=== PATIENT | female | born 1970 | race Caucasian/White ===

== ENCOUNTER 2017-01-10 14:11 | Observation (INO) ==
--- NOTE | 2017-01-10 14:24 | Emergency Department Note ---
Disposition Clinical Impression: Chest pain Disposition: Admitted As Inpatient Condition: Good Forms: ED Satisfaction Letter Time of Disposition: 17:59 Chest Pain HPI - General Chief Complaint: ED Chest Pain Stated Complaint: CP, High BP Time Seen by Provider: 01/10/17 14:24 Source: patient Limitations: no limitations Vital Signs Reviewed: Yes Nursing Notes Reviewed: Yes - History of Present Illness HPI Narrative: 36-year-old white female presents emergency department via private vehicle complaining of epigastric/chest pain. She describes a numbness and tingling in her left arm. She says that she was awakened this morning with this chest burning and pressure. She says that she went to work and was not going to come to the emergency department until it was discovered that she had an elevated blood pressure and she was encouraged by coworkers to come and be checked. She says that she has never been told that she has had a problem with her heart before, but says that she does not go to the doctor, because she does not want to know. She is uncomfortable and anxious presently. She says that she has a positive family history including a AAA in her brother at age 38. She also says that other relatives have had PE in the past. Severity scale (1-10): 6 - Related Data Home Medications Medication Instructions Recorded Confirmed No Known Home Drugs 01/10/17 01/10/17 Allergies Allergy/AdvReac Type Severity Reaction Status Date / Time Sulfa (Sulfonamide Allergy Rash Verified 01/10/17 14:21 Antibiotics) All systems ED: reviewed and negative except as stated. Constitutional: Denies: fever, chills, weakness, weight change Eyes: Denies: eye pain, eye discharge, vision change ENT ED: Denies: ear pain, throat pain, dental pain, hearing loss, epistaxis, congestion, dysphagia Cardiovascular: Reports: as per HPI, chest pain. Denies: palpitations, dyspnea on exertion, edema, syncope Respiratory: Denies: cough, dyspnea, wheezes, hemoptysis, stridor Gastrointestinal: Reports: abdominal pain, nausea Genitourinary: Denies: dysuria, frequency, hematuria, discharge Musculoskeletal: Denies: back pain, neck pain, arthralgia, myalgia Integumentary: Denies: rash, abrasion, lesions Neurological: Denies: headache, weakness, numbness, paresthesias, confusion, abnormal gait, vertigo Psychiatric: Denies: anxiety, depression, suicidal thoughts, homicidal thoughts , auditory hallucinations, visual hallucinations Endocrine: Denies: fatigue Hematological/Lymphatic: Denies: easy bleeding, easy bruising Allergic/Immunologic: Denies: facial swelling, urticaria Chest Pain PMH - Past Medical History Medical history: Reports: no medical history Psychiatric history: Reports: no psych history - Social History Smoking Status: Never smoker Alcohol use: Reports: occasionally Drug use: Reports: none Physical Exam - General Limitations: no limitations General appearance: alert, in no apparent distress - Head Head exam: atraumatic, normocephalic, normal inspection - Eye Eye exam: Present: normal appearance, PERRL, EOMI - ENT ENT exam: normal exam, normal oropharynx, mucous membranes moist - Neck Neck exam: Present: normal inspection, full ROM, trachea midline - Chest Chest inspection: Present: normal inspection, symmetric chest wall rise - Respiratory Respiratory exam: Present: normal lung sounds bilaterally - Cardiovascular Cardiovascular exam: Present: regular rate, normal rhythm, normal heart sounds - Abdominal Exam Abdominal exam: Present: soft, tenderness, normal bowel sounds, other ( Palpation of her epigastrium reproduces her symptoms.). Absent: distention, guarding, rebound, rigidity, organomegaly, mass Abdominal tenderness: Present: epigastrium, moderate - Extremities Exam Extremities exam: Present: normal inspection, full ROM. Absent: tenderness, pedal edema - Back Exam Back exam: Present: normal inspection, full ROM. Absent: tenderness, CVA tenderness (L) - Neurological Exam Neurological exam: Present: alert, oriented X3, CN II-XII intact. Absent: motor sensory deficit - Psychiatric Psychiatric exam: Present: normal affect, normal mood - Skin Skin exam: Present: warm, dry, intact, normal color Course Course Narrative: The patient remained stable throughout her emergency department stay. She was pain free at the time of her disposition. Vital Signs Temperature 98.0 F 01/10/17 14:16 Pulse Rate 114 01/10/17 14:16 Respiratory Rate 18 01/10/17 14:16 Blood Pressure 130/97 01/10/17 14:16 O2 Sat by Pulse Oximetry 97 01/10/17 14:16 Temperature 98.0 F 01/10/17 14:16 Pulse Rate 114 01/10/17 14:16 Respiratory Rate 18 01/10/17 14:16 Blood Pressure 130/97 01/10/17 14:16 O2 Sat by Pulse Oximetry 98 01/10/17 14:23 Oxygen Delivery Oxygen Delivery Room Air Chest Pain - Lab Data Lab results reviewed: Yes I reviewed the patient's lab results. Result diagrams: 01/10/17 14:45 01/10/17 14:45 Lab Results 01/10/17 01/10/17 01/10/17 Range/Units 14:45 14:45 14:45 WBC 8.1 (4.3-11.1) K/mcL RBC 4.53 (3.82-4.97) M/mcL Hgb 14.1 (11.5-15.4) g/dL Hct 39.9 (35.3-44.9) % MCV 88.1 (83.0-100.0) fL MCH 31.1 (28.0-33.3) pg MCHC 35.3 (31.6-35.5) g/dL RDW 12.4 (11.5-14.5) % Plt Count 311 (140-400) K/mcL MPV 10.1 (9.4-12.4) fL Immature Gran % 0.2 (0-4) % Seg Neutrophils % 73.1 % Lymphocytes % 19.1 % Monocytes % 6.4 % Eosinophils % 0.7 % Basophils % 0.5 % Neutrophils # 5.9 (1.6-8.9) K/mcL Lymphocytes # 1.6 (0.6-4.6) K/mcL Monocytes # 0.5 (0.0-1.3) K/mcL Eosinophils # 0.1 (0.0-0.6) K/mcL Basophils # 0.0 (0.0-0.2) K/mcL D-Dimer 293 (0-500) ng/mLFEU Sodium 137 (136-145) mEq/L Potassium 3.8 (3.5-4.5) mEq/L Chloride 109 (98-109) mEq/L Carbon Dioxide 21 (19-29) mEq/L BUN 10 (7-20) mg/dL Creatinine 0.77 (0.57-1.11) mg/dL Est GFR ( Amer) > 60 (> 60) Est GFR (Non-Af Amer) > 60 (> 60) BUN/Creatinine Ratio 13 (6-26) Glucose 102 H (70-99) mg/dL Calculated Osmolality 283 (280-300) Calcium 9.3 (8.6-10.8) mg/dL Total Bilirubin 0.6 (0.2-1.2) mg/dL AST 52 H (5-34) Units/L ALT 69 H (0-55) Units/L Alkaline Phosphatase 69 (38-126) Units/L Troponin I (0-0.03) ng/mL Serum Total Protein 7.0 (6.0-8.3) g/dL Albumin 3.5 (3.5-5.0) g/dL Globulin 3.5 (2.4-3.5) g/dL Albumin/Globulin Ratio 1.0 L (1.1-2.2) Lipase 22 (8-78) Units/L Salicylates < 5.0 L (15-30) mg/dL 01/10/17 Range/Units 14:45 WBC (4.3-11.1) K/mcL RBC (3.82-4.97) M/mcL Hgb (11.5-15.4) g/dL Hct (35.3-44.9) % MCV (83.0-100.0) fL MCH (28.0-33.3) pg MCHC (31.6-35.5) g/dL RDW (11.5-14.5) % Plt Count (140-400) K/mcL MPV (9.4-12.4) fL Immature Gran % (0-4) % Seg Neutrophils % % Lymphocytes % % Monocytes % % Eosinophils % % Basophils % % Neutrophils # (1.6-8.9) K/mcL Lymphocytes # (0.6-4.6) K/mcL Monocytes # (0.0-1.3) K/mcL Eosinophils # (0.0-0.6) K/mcL Basophils # (0.0-0.2) K/mcL D-Dimer (0-500) ng/mLFEU Sodium (136-145) mEq/L Potassium (3.5-4.5) mEq/L Chloride (98-109) mEq/L Carbon Dioxide (19-29) mEq/L BUN (7-20) mg/dL Creatinine (0.57-1.11) mg/dL Est GFR ( Amer) (> 60) Est GFR (Non-Af Amer) (> 60) BUN/Creatinine Ratio (6-26) Glucose (70-99) mg/dL Calculated Osmolality (280-300) Calcium (8.6-10.8) mg/dL Total Bilirubin (0.2-1.2) mg/dL AST (5-34) Units/L ALT (0-55) Units/L Alkaline Phosphatase (38-126) Units/L Troponin I 0.00 (0-0.03) ng/mL Serum Total Protein (6.0-8.3) g/dL Albumin (3.5-5.0) g/dL Globulin (2.4-3.5) g/dL Albumin/Globulin Ratio (1.1-2.2) Lipase (8-78) Units/L Salicylates (15-30) mg/dL - Radiology Data Radiology results reviewed: Yes I reviewed the patient's radiology results. - EKG Data EKG attestation: Yes I reviewed and interpreted this EKG. EKG results narrative: Twelve-lead EKG showed normal sinus rhythm, rate 91, normal axis, low voltage, no acute ST elevation or depression appreciated.
[2017-01-10] MEDS ORDERED: GI Cocktail 40 ML EACH PO ONE (14:34)
[2017-01-10] MEDS ORDERED: Aspirin 81 MG TAB.CHEW PO STA (14:34)
[2017-01-10 14:55] LABS: Basophils % 0.5 %; Eosinophils # 0.1 K/mcL (0.0-0.6); Eosinophils % 0.7 %; Hematocrit 39.9 % (35.3-44.9); Hemoglobin 14.1 g/dL (11.5-15.4); Immature Granulocytes % 0.2 % (0-4); Lymphocytes # 1.6 K/mcL (0.6-4.6); Lymphocytes % 19.1 %; Mean Corpuscular HGB Conc 35.3 g/dL (31.6-35.5); Mean Corpuscular Hemoglobin 31.1 pg (28.0-33.3); Mean Corpuscular Volume 88.1 fL (83.0-100.0); Mean Platelet Volume 10.1 fL (9.4-12.4); Monocytes # 0.5 K/mcL (0.0-1.3); Monocytes % 6.4 %; Neutrophils # 5.9 K/mcL (1.6-8.9); Platelet Count 311 K/mcL (140-400); Red Blood Count 4.53 M/mcL (3.82-4.97); Red Cell Distribution Width 12.4 % (11.5-14.5); Segmented Neutrophils % 73.1 %
[2017-01-10] MEDS ORDERED: *HR* Morphine 2 MG/ML SYRINGE IVP ONE ×2 (15:05→15:55)
[2017-01-10] MEDS ORDERED: Ondansetron 4 MG/2 ML VIAL IVP ONE ×2 (15:05→15:55)
[2017-01-10] MEDS ORDERED: *HR* LORazepam 2 MG/ML VIAL IVP ONE (15:05)
[2017-01-10 15:12] LABS: Alanine Aminotransferase 69 Units/L (0-55); Albumin 3.5 g/dL (3.5-5.0); Alkaline Phosphatase 69 Units/L (38-126); Aspartate Amino Transferase 52 Units/L (5-34); BUN/Creatinine Ratio 13 (6-26); Bilirubin,Total 0.6 mg/dL (0.2-1.2); Blood Urea Nitrogen 10 mg/dL (7-20); Calcium 9.3 mg/dL (8.6-10.8); Carbon Dioxide 21 mEq/L (19-29); Chloride 109 mEq/L (98-109); Globulin 3.5 g/dL (2.4-3.5); Glucose 102 mg/dL (70-99); Lipase 22 Units/L (8-78); Osmolality,Calculated 283 (280-300); Potassium 3.8 mEq/L (3.5-4.5); Salicylate < 5.0 mg/dL (15-30); Sodium 137 mEq/L (136-145); eGFR For African Americans > 60 (> 60); eGFR For Non-African Americans > 60 (> 60)
[2017-01-10] MEDS ORDERED: Ibuprofen 400 MG TABLET PO PRN (18:38)
[2017-01-10] MEDS ORDERED: Ondansetron ODT 4 MG TAB.RAPDIS SL PRN (18:38)
[2017-01-10] MEDS ORDERED: Naloxone 0.4 MG/ML INJ IVP PRN (18:38)
[2017-01-10] MEDS ORDERED: Acetaminophen 325 MG TABLET PO PRN (18:38)
[2017-01-10] MEDS ORDERED: *HR* HYDROmorphone (PF) 1 MG/ML SYRINGE IVP PRN (18:38)
[2017-01-10] MEDS ORDERED: Ketorolac 30 MG/ML VIAL IVP PRN (18:38)
[2017-01-10] MEDS ORDERED: *HR* HYDROcodone/Acet 5/325 mg TABLET PO PRN (18:38)
[2017-01-10] MEDS ORDERED: *HR* Promethazine 25 MG/ML VIAL IVP PRN (18:38)
[2017-01-10] MEDS ORDERED: Ondansetron 4 MG/2 ML VIAL IVP PRN (18:38)
[2017-01-10] MEDS ORDERED: *HR* Morphine 2 MG/ML SYRINGE IVP PRN (18:38)
[2017-01-11] MEDS ORDERED: *HR* Enoxaparin 40 MG/0.4 ML SYRINGE SQ SCH (07:00)
[2017-01-11 10:54] VITALS: BP 134/83
--- NOTE | 2017-01-11 12:58 | Internal Med History&Physical ---
Date of Encounter: 01/11/17 Time of Encounter: 12:56 Assessment and Plan (1) Chest pain Current visit: Yes Status: Acute I believe is noncardiac chest pain. She is somewhat reproducible on sternal pressure. She states it is worse when she gets up and moves around. 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 I am going to do a CT scan of her chest just to rule out aneurysm or any vascular disease simply because she had a 36-year-old brother suddenly of a ruptured aortic aneurysm. Qualifiers: Chest pain type: other chest pain Qualified Code(s): R07.89 - Other chest pain; R07.8 - Other chest pain Internal Medicine - H&P: HPI Chief complaint: Patient presented to the emergency room from work due to chest discomfort. Admitted From: Emergency Dept Plans for Post Hospital Care: Home History of present illness: Ms. Johnson is a 46 year old female Who presented with chest pain. She had no nausea or vomiting no diaphoresis no increased shortness of breath. EKG was normal troponins were normal also. She seems somewhat anxious. And basically she was placed into rule out any sort of ischemic heart disease. Because of the family history of an aneurysm in her brother who in his 30s I am going to do a CT of the chest Past Med Surg Social Fam HX - Past Medical History Medical history: migraine Psychiatric history: no psych history - Past Surgical History Surgical History: cholecystectomy - Social History Smoking Status: Never smoker Smokeless Tobacco Status: No Alcohol use: occasionally Drug use: none - Family History Mother Living Status: Still Living Hx Family Cardiac Disorders: No Hx Family Respiratory Disorders: No Hx Family Cancer: No Hx Family GI Disorders: No Hx Family Genitourinary Disorders: No Hx Family Endocrine Disorder: Yes (DM) Hx Family Musculoskeletal Disorders: No Hx Family Neuromuscular Disorders: Yes (CVA) Hx Family Neurologic Disorders: No Hx Family HEENT Disorders: No Hx Family Autoimmune Disorders: No Hx Family Reproductive Disorders: No Hx Family Psychosocial Disorders: No Hx Family Medical Disorders: No Father Living Status: Hx Family Cardiac Disorders: Yes (GA) Hx Family Respiratory Disorders: No Hx Family Cancer: Yes (adrenal) Hx Family GI Disorders: No Hx Family Genitourinary Disorders: No Hx Family Endocrine Disorder: No Hx Family Musculoskeletal Disorders: No Hx Family Neuromuscular Disorders: Yes (CVA) Hx Family Neurologic Disorders: No Hx Family HEENT Disorders: No Hx Family Autoimmune Disorders: No Hx Family Reproductive Disorders: No Hx Family Psychosocial Disorders: No Hx Family Medical Disorders: No Internal Medicine - H&P: Meds No Known Home Drugs 01/10/17 [History] 3 Allergy/AdvReac Type Severity Reaction Status Date / Time Sulfa (Sulfonamide Allergy Rash Verified 01/10/17 14:21 Antibiotics) All Systems PM: A 10-system review of systems was performed and is negative for pertinent findings except as documented above in the HPI. - Constitutional Constitutional: no anorexia, no chills, no excessive sweating, no fatigue, no fever(s), no falls, no lethargy, no malaise, no weakness, no other - EENT Eyes: no blurry vision, no change in vision, no decreased night vision, no diplopia, no discharge, no dry eye, no floaters, no irritation, no itchy eyes, no loss of peripheral vision, no loss of vision, no pain, no seeing flashes, no spots in vision, no tunnel vision, no other visual disturbances Ears: no decreased hearing, no ear discharge, no ear pain, no tinnitus, no other Nose, mouth and throat: no bleeding gums, no change in voice, no dental pain, no dry mouth, no dysphagia, no epistaxis, no facial pain, no hoarseness, no lip swelling, no mouth lesions, no mouth pain, no nasal congestion, no nasal discharge, no nasal obstruction, no neck mass, no neck pain, no nose pain, no odynophagia, no post-nasal drip, no sinus pain, no sinus pressure, no tongue swelling, no other - Breasts Breasts: no change in shape, no mass, no pain, no nipple discharge, no skin changes, no swelling - Cardiovascular Cardiovascular ROS IM: chest pain, no claudication, no diaphoresis, no dyspnea, no dyspnea on exertion, no edema, no irregular heart rhythm, no lightheadedness , no palpitations, no paroxysmal nocturnal dyspnea, no syncope - Respiratory Respiratory: pain on inspiration, no cough, no dyspnea, no hemoptysis, no dyspnea on exertion, no wheezing, no snoring, no stridor, no chest congestion, no excessive phlegm production, no change in phlegm color, no pain with cough, no other - Gastrointestinal Gastrointestinal: no abdominal pain, no belching, no bloating, no change in bowel habits, no change in stool character, no coffee ground emesis, no cramping , no diarrhea, no dyspepsia, no dysphagia, no early satiety, no excessive flatus , no fecal incontinence, no heartburn, no hematemesis, no hematochezia, no loose stools, no melena, no nausea, no odynophagia, no tenesmus, no vomiting - Genitourinary Genitourinary: no abnormal menses, no abnormal vaginal bleeding, no amenorrhea, no breast change in shape, no breast mass, no breast pain, no breast skin changes, no breast swelling, no difficulty conceiving, no difficulty urinating, no difficulty voiding, no dysmenorrhea, no dyspareunia, no dysuria, no flank pain, no genital lesions, no genital pruritis, no hematuria, no hot flashes, no light periods, no menorrhagia, no metrorrhagia, no nipple discharge, no nocturia , no pelvic pain, no post void dribbling, no prolapse symptoms, no sexual dysfunction, no urinary frequency, no urinary hesitancy, no urinary incontinence , no urinary urgency, no vaginal discharge, no vaginal dryness, no vaginal odor , no vaginal pruritis - Musculoskeletal Musculoskeletal ROS IM: no arthralgias, no atrophy, no back pain, no joint swelling, no limited range of motion, no muscle cramps, no muscle weakness, no myalgias, no neck pain, no numbness, no stiffness, no tingling, no other - Integumentary Integumentary IM: other, no erythema, no new lesions, no non-healing lesions, no pruritus, no rash, no skin ulcer, no sores, no unusual bruising, no jaundice - Neurological Neurological ROS: no abnormal gait, no abnormal hearing, no abnormal movements, no abnormal speech, no behavioral changes, no burning sensations, no confusion, no convulsions, no disequilibrium, no dizziness, no focal weakness, no frequent falls, no headache(s), no lack of coordination, no loss of vision, no memory loss, no numbness, no paresthesias, no radicular pain, no restless legs, no tingling, no tremor(s), no vertigo, no weakness, no other visual disturbances - Psychiatric Psychiatric: anxiety, no abnormal sleep pattern, no anhedonia, no auditory hallucinations, no behavioral changes, no change in appetite, no change in libido, no confusion, no depression, no difficulty concentrating, no homicidal ideation, no hopelessness, no irritability, no memory loss, no mood swings, no panic attacks, no paranoia, no suicidal ideation, no visual hallucinations, no tactile - Endocrine Endocrine IM: no cold intolerance, no deeping of the voice, no excessive sweating, no fatigue, no flushing, no heat intolerance, no polydipsia, no polyphagia, no polyuria - Hematologic/Lymphatic Hematologic/Lymphatic: no easy bleeding, no easy bruising, no lymphadenopathy - Allergic/Immunologic Allergic/Immunologic: no tongue swelling, no throat swelling, no uticaria, no wheezing, no GI upset with certain foods - Constitutional Vitals: Temp Pulse Resp BP Pulse Ox 98.4 F 91 16 134/83 97 01/11/17 10:53 01/11/17 10:53 01/11/17 10:53 01/11/17 10:53 01/11/17 10:53 General appearance: Present: cooperative, A&O X 3, pleasant - Head Head exam: Present: atraumatic, normal inspection, normocephalic - Neck Neck exam general surgery: Present: full ROM, supple, trachea midline. Absent: lymphadenopathy - Respiratory Respiratory exam: Present: CTAB. Absent: accessory muscle use, rales, rhonchi, wheezes - Cardiovascular Cardiovascular exam: Present: RRR, +S1, +S2. Absent: diastolic murmur, gallop, rubs, systolic murmur - GI/Abdominal GI/Abdominal exam: Present: normal bowel sounds, soft, no peritoneal signs. Absent: distended, tenderness - Neurological Exam Neurological exam: Present: CN II-XII intact, oriented X3, no focal deficits, strengths equal and symetr throughout. Absent: pronater drift, facial droop, speech deficit - Psychiatric Psychiatric exam: Present: anxious Internal Med - H&P Results - Labs CBC & Chem 7: 01/10/17 14:45 01/10/17 14:45 Labs: Cardiac Enzymes 01/10/17 01/11/17 01/11/17 Range/Units 19:15 01:25 08:10 Troponin I 0.00 0.00 0.00 (0-0.03) ng/mL Lab is stable her problems were all negative. - VTE Documentation of Mechanical Device: Graduated compression elastic hosiery
--- NOTE | 2017-01-11 15:28 | Discharge Summary ---
Date of Encounter: 01/11/17 Time of Encounter: 15:26 - Discharge Diagnosis (1) Chest pain Priority: Primary Status: Acute Comments: Ruled out cardiac disease. Even did a CT to show the great vessels which was all normal Qualifiers: Chest pain type: other chest pain Qualified Code(s): R07.89 - Other chest pain; R07.8 - Other chest pain - Discharge Medications Home Medications: No Known Home Drugs 01/10/17 [History] Allergies/Adverse Reactions: 3 Allergy/AdvReac Type Severity Reaction Status Date / Time Sulfa (Sulfonamide Allergy Rash Verified 01/10/17 14:21 Antibiotics) Procedures/tests Complete & Pending: Procedures Performed prior 72 hours Category Date Time Status CT chest wo con [CT] Routine Cat Scan 01/11/17 12:51 Completed Date of admission: 01/10/17 18:05 Primary care physician: PCP NONE Discharging clinician: Frankie Lucas Anticipated date of discharge: 01/11/17 - Patient Status Disposition: Home, Self-Care Functional capacity at discharge: independent ambulation Overall status at discharge: patient is progressing back to baseline - Discharge Instructions Follow Up With: Alexandra Hernandez DO [Non-Partnered Physician] - 01/28/17 10:00 am (, appoint at [facility] neurology clinic ) - Diet and Activity Activity: resume usual activities as tolerated Diet: advance to your usual diet Interval History: Patient presented emergency room from work because she became concerned about high blood pressure chest discomfort. It was reproducible though she had no diaphoresis she did apparently say one point showed some radiation to the arm. But her troponins were normal her EKG was normal and the CT scan of her chest was normal she does complain of a lot of headaches and she does have a history of vascular type headaches. Augmentin appointment for the neurologist. He was given instructions should she have persistent chest pain to go to the nearest emergency room for follow-up.. Hospital course: Ms. Johnson is a 46 year old female Who presented to the emergency room with chest pain and her blood pressure was checked at work are elevated they told her to go the hospital. She has been worked up. Everything has been negative so far she is in agreement with the plan. Her significant other and her mother were present ask questions and all were answered. She is return to work on Saturday her neck shift however if she is unable to due to illness to call me - Time Spent with Patient Total time spent providing and/or coordinating discharge services: Less than 30 minutes - Constitutional Vitals: Temp Pulse Resp BP Pulse Ox 98.4 F 91 16 134/83 97 01/11/17 10:53 01/11/17 10:53 01/11/17 10:53 01/11/17 10:53 01/11/17 10:53 General appearance: Present: cooperative, A&O X 3, pleasant - Head Head exam: Present: atraumatic, normal inspection, normocephalic - Neck Neck exam general surgery: Present: supple, trachea midline. Absent: lymphadenopathy - Respiratory Respiratory exam: Present: CTAB. Absent: accessory muscle use, rales, rhonchi, wheezes - Cardiovascular Cardiovascular exam: Present: RRR, +S1, +S2. Absent: diastolic murmur, gallop, rubs, systolic murmur - GI/Abdominal GI/Abdominal exam: Present: normal bowel sounds, soft, no peritoneal signs. Absent: distended, tenderness - VTE Documentation of Mechanical Device: Graduated compression elastic hosiery
--- NOTE | 2017-01-12 11:03 | Electrocardiograph Report ---
[place] [id number] Test Date: 2017-01-10 Pat Name: Maria M Johnson Department: 2000 Room: 112 Gender: F Rules Examiner: : 1970 Requested By: Yevgeniy Soriano Order Number: [id number] Azalia MD: Velvet Diaz Measurements Intervals [place] Rate: 91 P: 41 [place]: 145 QRS: 56 QRSD: 84 T: 18 QT: 362 QTc: 411 Interpretive Statements SINUS RHYTHM Electronically Signed On 01-12-2017 11:02:04 EDT by Velvet Diaz
== END 2017-01-11 15:42 | disposition home or self-care (01) ==
LOC: EMEROOGRE 14:11 → INPGRE 14:11
PROVIDERS: ADMIT Internal Medicine; ATTEND Internal Medicine